=== PATIENT | female | born 1975 | race Caucasian/White ===

== ENCOUNTER → 2017-09-26 | Outpatient (CLI) | payer OTHER | LOC: FIMAGING 15:43 | PROVIDERS: ATTEND Physician Assistant Medical | DX: Z12.31 Encounter for screening mammogram for malignant neoplasm of breast (principal) | CPT/HCPCS: G0202 ==

== ENCOUNTER → 2018-10-18 | Outpatient (CLI) | payer OTHER | LOC: CIMAGING 09:58 | PROVIDERS: ATTEND Physician Assistant Medical | DX: Z12.31 Encounter for screening mammogram for malignant neoplasm of breast (principal) ==

== ENCOUNTER → 2018-12-28 | Outpatient (CLI) | payer OTHER | LOC: EMCIMAGING 14:20 | PROVIDERS: ATTEND Physician Assistant Medical | DX: R05 Cough (principal); R06.2 Wheezing | CPT/HCPCS: 71046-PN ==